=== PATIENT | female | born 1975 | race Caucasian/White ===

== ENCOUNTER 2018-10-29 09:34 | Emergency (ER) | payer OTHER ==
[2018-10-29 09:45] VITALS: BP 107/63; PULSE 70; TEMP 97.9; BMI 21.9
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
== END 2018-10-29 11:36 | disposition home or self-care (01) ==
LOC: JERFT 09:34
DX: S16.1XXA Strain of muscle, fascia and tendon at neck level, initial encounter (principal); V43.52XA Car driver injured in collision with other type car in traffic accident, initial encounter; Y93.89 Activity, other specified; Y92.410 Unspecified street and highway as the place of occurrence of the external cause; S39.012A Strain of muscle, fascia and tendon of lower back, initial encounter
CPT/HCPCS: 99281-25